=== PATIENT | female | born 1955 | race Caucasian/White ===

== ENCOUNTER 2019-10-19 10:33 | Inpatient (IN) | payer BC ==
[~2019-10-19] VITALS: Ht 167.6 cm; Wt 66.4 kg
[~2019-10-19 10:33] MED LIST: ASPI-611 PO; ATOR40TA PO; CLOP75TA33 PO; ENAL2.5T PO; FURO-150 PO; METO-395 PO
[2019-10-19 11:44] LABS: BASOPHILS # (AUTO) 0.1 X10'3 (0-0.2); BASOPHILS % (AUTO) 0.8 % (0-1); EOSINOPHILS # (AUTO) 0.1 X10'3 (0-0.9); EOSINOPHILS % (AUTO) 1.4 % (0-6); HEMATOCRIT 40.5 % (35.0-45.0); HEMOGLOBIN 13.7 g/dl (12.0-16.0); LYMPHOCYTES # (AUTO) 1.2 X10'3 (1.1-4.8); LYMPHOCYTES % (AUTO) 17.6 % (21-51); MEAN CORPUSCULAR HEMOGLOBIN 29.4 PG (27.0-31.0); MEAN CORPUSCULAR HGB CONC 33.9 g/dL (33.0-36.5); MEAN CORPUSCULAR VOLUME 86.7 FL (78-98); MEAN PLATELET VOLUME 9.5 FL (7.4-10.4); MONOCYTES # (AUTO) 0.6 X10'3 (0-0.9); MONOCYTES % (AUTO) 7.8 % (2-12); NEUTROPHILS # (AUTO) 5.1 X10'3 (1.8-7.7); NEUTROPHILS % (AUTO) 72.4 % (42-75); PLATELET COUNT 234 X10'3 (140-440); RED BLOOD COUNT 4.67 X10'6 (4.20-5.60); RED CELL DISTRIBUTION WIDTH 12.7 % (11.5-14.5); WHITE BLOOD COUNT 7.1 X10'3 (4.5-11.0)
[2019-10-19 12:03] LABS: ALANINE AMINOTRANSFERASE 16 U/L (12-78); ALBUMIN 4.2 G/DL (3.4-5.0); ALKALINE PHOSPHATASE 102 IU/L (46-116); ANION GAP 9 (8-16); ASPARTATE AMINO TRANSFERASE 11 U/L (10-37); BILIRUBIN,TOTAL 0.4 MG/DL (0.1-1.0); BLOOD UREA NITROGEN 22 MG/DL (7-18); BUN/CREATININE RATIO 28.6 (6.6-38.0); CALCIUM 9.3 MG/DL (8.5-10.1); CHLORIDE 105 MMOL/L (99-107); CREATININE 0.77 MG/DL (0.40-0.90); GLUCOSE 127 MG/DL (70-104); POTASSIUM 4.2 MMOL/L (3.5-5.1); SODIUM 145 MMOL/L (135-145); TOTAL CARBON DIOXIDE 30.7 MMOL/L (24-32); TOTAL PROTEIN 8.3 G/DL (6.4-8.2); eGFR 76 ML/MIN
[2019-10-19] MEDS ORDERED: cloNIDine 0.1 mg tablet PO ONE (12:15)
[2019-10-19] MEDS ORDERED: AMLO5TAB4 PO (14:13)
[2019-10-19] MEDS ORDERED: PANT-47 PO (14:13)
[2019-10-19] MEDS ORDERED: UBID100C16 PO (14:13)
[2019-10-19] MEDS ORDERED: ENAL20TA75 PO (14:13)
[2019-10-19] MEDS ORDERED: MAGN200T5 PO (14:18)
[2019-10-19] MEDS ORDERED: D3 5000 IU PO (14:18)
[2019-10-19] MEDS ORDERED: regadenoson 0.4mg/5ml syringe IV PRN (15:30)
[2019-10-19] MEDS ORDERED: magnesium Cl slow-release 64mg tablet PO PRN (15:30)
[2019-10-19] MEDS ORDERED: morphine 2 MG/ML inj. syringe IV PRN ×2 (15:30)
[2019-10-19] MEDS ORDERED: nitroGLYCERIN 0.4mg SUBLingual tab SL PRN (15:30)
[2019-10-19] MEDS ORDERED: acetaminophen 325mg tablet PO PRN ×2 (15:30)
[2019-10-19] MEDS ORDERED: potassium Cl 20 mEq SR tablet PO PRN ×2 (15:30)
[2019-10-19] MEDS ORDERED: magnesium hydroxide 30ml (MOM) UD suspension PO PRN (15:30)
[2019-10-19] MEDS ORDERED: ondansetron/PF 4mg/2ml inj IV PRN (15:30)
[2019-10-19] MEDS ORDERED: acetaminophen 650mg rectal suppository RC PRN (15:30)
[2019-10-19] MEDS ORDERED: diphenhydrAMINE 25mg capsule PO PRN (15:30)
[2019-10-19] MEDS ORDERED: metoprolol tartrate 1mg/ml inj IV PRN (15:30)
[2019-10-19] MEDS ORDERED: magnesium 2GM in 50ml NS 50 ML IV PRN (15:30)
[2019-10-19] MEDS ORDERED: HYDROcodone/acetaminophen 5mg/325mg tablet PO PRN (15:30)
[2019-10-19] MEDS ORDERED: potassium CL 10mEq/100ml bag 100 ML IV PRN ×2 (15:30)
[2019-10-19] MEDS ORDERED: bisacodyl 10mg suppository rectal RC PRN (15:30)
[2019-10-19] MEDS ORDERED: magnesium 4gm in 100ml NS 100 ML IV PRN (15:30)
[2019-10-19] MEDS ORDERED: HYDROcodone/acetaminophen 10/325mg tab PO PRN (15:30)
[2019-10-19] MEDS ORDERED: mag hydrox/Alum hydrox/simeth 30ml oral suspension PO PRN (15:30)
[2019-10-19] MEDS ORDERED: aminophylline 250mg/10ml inj. IV PRN (15:30)
[2019-10-19] MEDS: normal saline 1000ml 1,000 ML IV SCH (16:21)
[2019-10-19 16:25] LABS: CLARITY,URINE CLEAR (Clear); COLOR,URINE YELLOW (Yellow); GLUCOSE, URINE NEGATIVE (Neg); KETONES,URINE NEGATIVE (Neg); LEUKOCYTE ESTERASE ,URINE NEGATIVE (Neg); NITRITES, URINE NEGATIVE (Neg); OCCULT BLOOD,URINE NEGATIVE (Neg); PROTEIN,URINE NEGATIVE (Neg); UROBILINOGEN,URINE 0.2 E.U/dL (0.2-1.0)
[2019-10-19 16:26] LABS: UA COLLECTION TYPE CLN CATCH MIDSTREAM
[2019-10-19 17:44] LABS: HEMOGLOBIN A1C 5.5 % (4.5-6.2)
--- NOTE | 2019-10-19 19:35 | NUR ---
received report from [facility], had opportunity to ask questions, awaiting pt arrival to unit. VS reported stable with pt sinus aron in the 40-50s, and on RA.
[2019-10-19 19:45] VITALS: BP 98/43
[2019-10-19] MEDS: K and/or MAG REPLACEMENT MC SCH (20:00)
[2019-10-19] MEDS: heparin, porcine 5000 units/ml vial SQ SCH (20:22)
--- NOTE | 2019-10-19 21:29 | NUR ---
Problems reprioritized. Patient report given, questions answered & plan of care reviewed with Shaylee [facility].
[2019-10-19 23:00] VITALS: BP 120/50
[2019-10-20] VITALS (15 sets, daily range): BP systolic 121–186; BP diastolic 50–97
[2019-10-20 05:50] LABS: HEMOGLOBIN 11.6 g/dl (12.0-16.0)
[2019-10-20 05:52] LABS: BASOPHILS # (AUTO) 0.1 X10'3 (0-0.2); EOSINOPHILS # (AUTO) 0.1 X10'3 (0-0.9); EOSINOPHILS % (AUTO) 1.1 % (0-6); LYMPHOCYTES # (AUTO) 2.5 X10'3 (1.1-4.8); LYMPHOCYTES % (AUTO) 30.7 % (21-51); MEAN CORPUSCULAR HEMOGLOBIN 29.9 PG (27.0-31.0); MEAN CORPUSCULAR HGB CONC 34.2 g/dL (33.0-36.5); MEAN CORPUSCULAR VOLUME 87.5 FL (78-98); MEAN PLATELET VOLUME 10.2 FL (7.4-10.4); MONOCYTES # (AUTO) 0.7 X10'3 (0-0.9); MONOCYTES % (AUTO) 9.1 % (2-12); NEUTROPHILS # (AUTO) 4.7 X10'3 (1.8-7.7); NEUTROPHILS % (AUTO) 58.1 % (42-75); PLATELET COUNT 198 X10'3 (140-440); RED BLOOD COUNT 3.88 X10'6 (4.20-5.60); RED CELL DISTRIBUTION WIDTH 12.8 % (11.5-14.5); WHITE BLOOD COUNT 8.2 X10'3 (4.5-11.0)
[2019-10-20 05:57] LABS: ALANINE AMINOTRANSFERASE 22 U/L (12-78); ALBUMIN 3.3 G/DL (3.4-5.0); ALKALINE PHOSPHATASE 76 IU/L (46-116); ANION GAP 9 (8-16); ASPARTATE AMINO TRANSFERASE 15 U/L (10-37); BILIRUBIN,TOTAL 0.4 MG/DL (0.1-1.0); BLOOD UREA NITROGEN 13 MG/DL (7-18); BUN/CREATININE RATIO 19.1 (6.6-38.0); CALCIUM 8.8 MG/DL (8.5-10.1); CHLORIDE 110 MMOL/L (99-107); CHOL/HDL RATIO 4.1 (0.00-4.99); CHOLESTEROL 114 MG/DL (0-200); CREATININE 0.68 MG/DL (0.40-0.90); GLUCOSE 105 MG/DL (70-104); HDL CHOLESTEROL 28 MG/DL (35-60); LDL CHOLESTEROL 58 MG/DL (50-100); MAGNESIUM 2.1 MG/DL (1.5-2.4); PHOSPHORUS 4.3 MG/DL (2.3-4.5); POTASSIUM 3.9 MMOL/L (3.5-5.1); SODIUM 147 MMOL/L (135-145); TOTAL PROTEIN 6.5 G/DL (6.4-8.2); TRIGLYCERIDES 191 MG/DL (20-135); eGFR 88 ML/MIN
--- NOTE | 2019-10-20 07:00 | NUR ---
Patient in room PCU 3026. I have received report from joyce qiu and had the opportunity to ask questions and assume patient care.
[2019-10-20] MEDS: normal saline 1000ml 1,000 ML IV SCH (07:43)
[2019-10-20] MEDS: heparin, porcine 5000 units/ml vial SQ SCH (07:52)
[2019-10-20] MEDS ORDERED: vitamin D (cholecalciferol) 1,000 unit tablet PO SCH (08:00)
[2019-10-20] MEDS ORDERED: aspirin 81mg tablet.DR PO SCH (08:00)
[2019-10-20] MEDS ORDERED: non-formulary drug (Ubidecarenone (Coq-10) 100 MG) PO SCH (08:00)
[2019-10-20] MEDS: K and/or MAG REPLACEMENT MC SCH (08:00)
[2019-10-20] MEDS ORDERED: magnesium oxide 400mg tablet PO SCH (08:00)
[2019-10-20] MEDS ORDERED: lisinopril 20mg tablet PO SCH (08:00)
[2019-10-20] MEDS ORDERED: atorvastatin 20mg tablet PO SCH (08:00)
[2019-10-20] MEDS ORDERED: amLODIPine 5mg tablet PO SCH (08:00)
[2019-10-20] MEDS ORDERED: pantoprazole 40mg Tablet.DR PO SCH (08:00)
[2019-10-20] MEDS ORDERED: metoprolol succinate 25mg (24-HOUR) SR. Tablet PO SCH (08:00)
--- NOTE | 2019-10-20 10:22 | NUR ---
PAGER ID: [phone] MESSAGE: DR. HENDERSON, [id number], HAS RETURNED FROM [facility]. HAD TO HOLD LOPRESSOR FOR HR 48. SAMANTHA [id number],TY
--- NOTE | 2019-10-20 11:36 | NUR ---
DR. HENDERSON NOTIFIED OF BP172/59, HR 50.
[2019-10-20] MEDS ORDERED: AMLO5TAB16 PO (17:51)
[2019-10-21] MEDS ORDERED: vitamin D (cholecalciferol) 1,000 unit tablet PO SCH (08:00)
== END 2019-10-20 15:12 | disposition home or self-care (01) | DRG 282 ==
LOC: ER 10:34 → ED HOLD 15:29 → EDBEDREQ 19:21 → PCU 3S 20:20
PROVIDERS: ADMIT Family Medicine; ATTEND Family Medicine
PROC: 4A02XM4 Measurement of Cardiac Total Activity, External Approach (ICD-10-PCS; principal; 2019-10-20)
PROC: 3E073KZ Introduction of Other Diagnostic Substance into Coronary Artery, Percutaneous Approach (ICD-10-PCS; 2019-10-20)
DX: I16.1 Hypertensive emergency (principal); I21.A1 Myocardial infarction type 2; E78.00 Pure hypercholesterolemia, unspecified; E78.5 Hyperlipidemia, unspecified; F12.10 Cannabis abuse, uncomplicated; I10 Essential (primary) hypertension; R19.7 Diarrhea, unspecified; K21.9 Gastro-esophageal reflux disease without esophagitis; I25.10 Atherosclerotic heart disease of native coronary artery without angina pectoris; I25.2 Old myocardial infarction; Z82.49 Family history of ischemic heart disease and other diseases of the circulatory system; Z90.710 Acquired absence of both cervix and uterus; Z95.1 Presence of aortocoronary bypass graft; Z95.5 Presence of coronary angioplasty implant and graft; Z88.5 Allergy status to narcotic agent
CPT/HCPCS: 36415; 70450; 71045; 78452; 80053; 80061; 81003; 83036; 83735; 84100; 84484; 85025; 87081; 93005; 93017; 93306; 99285; A9500; G0378; J0280; J1644; J2785; J7030